=== PATIENT | male | born 1990 | race Two or more races ===

== ENCOUNTER 2024-11-12 10:53 | Emergency (ER) | payer OTHER ==
[2024-11-12 11:01] VITALS: BP 121/70; PULSE 64; RESP 20; TEMP 97.9; BMI 31.9
== END 2024-11-12 13:50 | disposition home or self-care (01) ==
LOC: JERFT 10:53
DX: R05.9 Cough, unspecified (principal); J06.9 Acute upper respiratory infection, unspecified; R07.9 Chest pain, unspecified; Z20.822 Contact with and (suspected) exposure to COVID-19
CPT/HCPCS: 0241U-QW; 99283-25